=== PATIENT | female | born 1960 | race Caucasian/White ===

== ENCOUNTER 2025-06-02 08:00 | Day surgery (SDC) | payer OTHER ==
[2025-06-01 12:17] VITALS: BP 125/75
[~2025-06-02 08:00] MED LIST: ATORVASTATIN CA80 MG PO; COZAAR100 MG PO; SYNJARDY 12.5-1 EACH PO
[2025-06-02] MEDS ORDERED: CEFAZOLIN SODIUM 1,000 MG VIAL ONE (09:03)
[2025-06-02] MEDS ORDERED: CHLORHEXIDINE GLUCONATE 120 ML BOTTLE TOP ONE (11:53)
== END 2025-06-02 17:15 | disposition home or self-care (01) ==
LOC: CIR.AMB 08:00
PROVIDERS: ATTEND Surgery
DX: C50.412 Malignant neoplasm of upper-outer quadrant of left female breast (principal)